=== PATIENT | male | born 1965 | race Caucasian/White ===

== ENCOUNTER → 2016-05-10 12:07 | Outpatient (CLI) | payer BC ==
[~2016-05-10 12:07] MED LIST: AMBIEN10 MG PO; BENAZEPRIL HCL10 MG PO; ISOSORBIDE MONO30 M1 PO; METFORMIN HCL500 M1 PO; NORVASC10 MG PO; PLAVIX75 MG PO; PROZAC SOL20 MG/5 M1 PO; TOPROL XL50 MG PO; ZETIA10 MG PO
[2016-06-11 09:36] VITALS: BMI 37.3
== END | disposition home or self-care (01) ==
LOC: D.CT 12:07
DX: R93.8 Abnormal findings on diagnostic imaging of other specified body structures (principal)

== ENCOUNTER 2016-06-11 08:56 | Day surgery (SDC) | payer BC ==
[~2016-06-11] VITALS: Ht 177.8 cm; Wt 120.2 kg
[2016-06-11] MEDS ORDERED: AMBIEN10 MG PO (09:25)
[2016-06-11] MEDS ORDERED: TOPROL XL50 MG PO (09:26)
[2016-06-11] MEDS ORDERED: BENAZEPRIL HCL10 MG PO (09:26)
[2016-06-11] MEDS ORDERED: PLAVIX75 MG PO (09:27)
[2016-06-11] MEDS ORDERED: NORVASC10 MG PO (09:27)
[2016-06-11] MEDS ORDERED: ISOSORBIDE MONO30 M1 PO (09:27)
[2016-06-11] MEDS ORDERED: ZETIA10 MG PO (09:28)
[2016-06-11] MEDS ORDERED: PROZAC SOL20 MG/5 M1 PO (09:28)
[2016-06-11] MEDS ORDERED: METFORMIN HCL500 M1 PO (09:29)
[2016-06-11 09:36] VITALS: BP 120/77; Ht 177.8 cm; Wt 120.2 kg
[2016-06-11 10:16] LABS: BASOPHILS 0.3 % (0.0-2.0); EOSINOPHILS 1.4 % (0-7); HEMATOCRIT 46.7 % (42.0-54.0); HEMOGLOBIN 16.3 g/dL (13.5-17.5); IMMATURE GRANULOCYTES 0.5 % (0-5); LYMPHOCYTES 20.1 % (15-50); MCH 31.3 pg (26.0-34.0); MCHC 34.9 g/dL (31.0-37.0); MCV 89.8 fL (80.0-100.0); MEAN PLATELET VOLUME 11.2 fL (7.4-10.4); MONOCYTES 11.6 % (2-11); NEUTROPHILS 66.1 % (40-80); PLATELET COUNT 188 10x3/uL (130-400); RDW 12.9 % (11.5-14.5); WBC 6.6 10x3/uL (4.8-10.8)
[2016-06-11 10:37] LABS: CALC OSMOLALITY 279 mosm/kg (275-300); CALCIUM 8.9 mg/dL (8.5-10.1); CARBON DIOXIDE 22.9 mmol/L (21.0-32.0); CHLORIDE - SERUM 102 mmol/L (98-107); CREATININE - SERUM 1.1 mg/dL (0.6-1.3); GLUCOSE 172 mg/dL (74-106); POTASSIUM - SERUM 4.1 mmol/L (3.5-5.1); SODIUM 137 mmol/L (136-145); UREA NITROGEN 17 mg/dL (7-18); eGFR NON AFRICAN AMERICAN 75 mL/min (90-120)
--- NOTE | 2016-06-11 12:09 | NUR ---
[address] PANCHAL PRIOR TO PT.'S RETURN TO ROOM. PROCEDURE FINDINGS DISCUSSED WITH Nitish KENNY. Anamaria POWELL R.N.
--- NOTE | 2016-06-11 12:38 | NUR ---
1230- FULL LIQUIDS TOLERATED. PT SITTING UP WITH HOB ELEVATED. VSS. 1235- PT UP OOB TO BR, VOIDED WITHOUT DIFFICULTY
--- NOTE | 2016-06-11 13:10 | NUR ---
1305 AWAKE & ALERT. DRESSING SITTING UP ON SIDE OF BED. IV EXTENSION TUBING ONLY REMAINS, D/C'ED WITH CATH INTACT PRESSURE TO SITE. CALL PLACED & ORDERS RECEIVED FOR D/C INSTRUCTIONS FROM DR. PANCHAL. PT GIVEN DISCHARGE INSTRUCTIONS INCLUDING: MED REC., SHEET LISTING NSAIDS & BLOOD THINNERS TO AVOID FOR NEXT 14 DAYS, & DISCHARGE INSTRUCTION SHEET POST ENDOSCOPIC PROCEDURES. PT & VOICED UNDERSTANDING. TO PRIVATE CAR PER WHEELCHAIR BY VOLUNTEER. HOME WITH MRS. COX. Anamaria SHULTZ R.N.
--- NOTE | 2016-06-14 09:40 | HP ---
PATIENT: MILDRED COX MEDICAL RECORD: [id number] ACCOUNT: [id number] LOCATION:[facility] : 63 ADMISSION DATE: 06/11/16 HISTORY AND PHYSICAL EXAMINATION CHIEF COMPLAINT: Desires screening colonoscopy. HISTORY OF PRESENT ILLNESS: The patient desires screening colonoscopy. The risks, possible complications and alternatives to procedure were explained to the patient. He elects to proceed. The patient has been on Plavix until June 06. The patient is on CPAP. He does have obstructive sleep apnea. He has had no abdominal pain. No hematochezia. No prior colonoscopy. ALLERGIES: No known drug allergies. HOME MEDICATIONS: Norvasc, benazepril, Zetia, isosorbide, metoprolol, Prozac, and Ambien. SOCIAL HISTORY: Nonsmoker. PAST MEDICAL AND SURGICAL HISTORY: Emphysema, sleep apnea, he is on CPAP, coronary artery disease, hypertension, 9 coronary stents, and noninsulin-dependent diabetes mellitus. REVIEW OF SYSTEMS: Negative for CVA or seizures. Negative for renal disease or hepatitis. The review of systems is negative other than as described above. PHYSICAL EXAMINATION: GENERAL: The patient does not appear acutely ill. He does not appear chronically ill. VITAL SIGNS: Reviewed. HEAD: External ears appear normal. EYES: Extraocular movements are intact. NECK: Trachea is midline. CHEST: No intercostal retractions. PULMONARY: Nonlabored. No stridor. ABDOMEN: Nontender. EXTREMITIES: No peripheral cyanosis. IMPRESSION: Desires screening colonoscopy. PLAN: Will be screening colonoscopy. TRANSINT:[id number] Voice Confirmation ID: [id number] DOCUMENT ID: [id number] HISTORY AND PHYSICAL [id number] MILDRED COX ROBERT MD at 0940 CC: ZULMA SABILLON DO and FILIBERTO BAXTER MD [id number] DICTATION DATE: 06/11/16 1053 [place]: 06/11/16 1134 [facility] 06/11/16 [facility] [address] [id number]
--- NOTE | 2016-06-14 09:40 | OP ---
PATIENT NAME: MILDRED COX MEDICAL RECORD: [id number] :63 LOCATION:D[facility] ADMISSION DATE: SURGEON: WILL PANCHAL MD DATE OF OPERATION: 06/11/2016 PREOPERATIVE DIAGNOSIS: Desires screening colonoscopy. POSTOPERATIVE DIAGNOSES: Desires screening colonoscopy with 7 colon and rectal polyps and 1 was large and pedunculated with a stalk. PROCEDURES: 1. Total colonoscopy to cecum. 2. Snare polypectomy times 1. 3. Hot biopsy forceps polypectomies times 6. SURGEON: Will Panchal MD. PUBLICATION DIRECTOR: None. BLOOD LOSS: Minimal. ANESTHESIA: IV sedation. COMPLICATIONS: None. The risks, possible complications, and alternatives to the procedure were explained to the patient. He elects to proceed. The discussion specifically included, but was not limited to, bleeding requiring emergency reoperation, infection, endoscopic perforation. ENDOSCOPIC COURSE: The patient was conveyed to the endoscopy suite electively on 06/11/2016. An IV sedation was induced by anesthesia staff. The patient was placed in the Saba position. A digital rectal examination was performed. The prostate was of normal size and texture. No nodules were noted. The prostate was symmetric. A colonoscope was inserted through the anus. It was easily advanced to the cecum. The prep was excellent. A combination of direct imaging and narrow band imaging were used for the endoscopy. I slowly withdrew the endoscope. I irrigated and aspirated extensively. I dragged the folds. The pullback was greater than a 14-minute pullback. A snare polypectomy was performed, a 1.5 cm pedunculated polyp with a stalk. The snare polypectomy was performed utilizing the coagulation setting. Once I had removed the adenomatous portion of the polyp it was grasped with an endoscopic snare and withdrawn through the rectum. I readvanced the endoscope to the stalk. I then grasped the stalk with the hot biopsy forceps and cauterized the stalk to make it hemostatic. I then continued to withdraw the endoscope. A total of 6 hot biopsy forceps polypectomies were performed. These polyps appeared adenomatous and were between the 9-mm and 1.3 cm in size. All the 6 polyps were sessile. They were removed in their entireties. A retroflexed view was obtained in the rectum. I then unretroflexed the scope and removed it under direct vision. I will see the patient in my office in 2-3 weeks. I will plan for his next colonoscopy to take place in 1 year. OPERATIVE REPORT [id number] MILDRED COX TRANSINT:[id number] Voice Confirmation ID: [id number] DOCUMENT ID: [id number] WILL PANCHAL MD at 0940 CC: ZULMA SABILLON DO [id number] DICTATION DATE: 06/11/16 1406 [employer]: 06/11/161951 [facility] [place] 06/11/16 [place] [id number]
== END 2016-06-11 13:05 | disposition home or self-care (01) ==
LOC: D.OPS 08:56
PROVIDERS: Anesthesiology
DX: Z12.11 Encounter for screening for malignant neoplasm of colon (principal); D12.4 Benign neoplasm of descending colon; K63.5 Polyp of colon; K62.1 Rectal polyp; E11.9 Type 2 diabetes mellitus without complications; G47.33 Obstructive sleep apnea (adult) (pediatric); J43.9 Emphysema, unspecified; I25.10 Atherosclerotic heart disease of native coronary artery without angina pectoris; Z95.5 Presence of coronary angioplasty implant and graft; I10 Essential (primary) hypertension; Z79.02 Long term (current) use of antithrombotics/antiplatelets; Z79.899 Other long term (current) drug therapy